=== PATIENT | male | born 1970 | race American Indian/Alaskan Native ===

== ENCOUNTER 2021-09-05 21:40 | Emergency (ER) | payer SELFPAY ==
--- NOTE | 2021-09-05 21:58 | Emergency Department Report ---
<FINN AGUILAR - Last Filed: 09/05/21 22:56> ED Alcohol HPI - General Stated Complaint: ETOH Time Seen by Provider: 09/05/21 21:54 Source: EMS Mode of arrival: Stretcher Limitations: Altered Mental Status - History of Present Illness Initial Comments: Chief complaint: Altered mental status HPI: This 50-year-old male with unknown past history who was found on someone's lawn. Bystander called 911. Strong odor of alcohol reported per EMS. Blood gl ucose 249. Patient mumbling unintelligibly. Does not provide any history. Moving all 4 extremities. MD Complaint: alcohol intoxication Last Drink: unknown Treatments Prior to Arrival: other (EMS transport) - Related Data Home Medications Medication Instructions Recorded Confirmed Last Taken No Known Home Medications [No 09/05/21 09/05/21 Unknown Reported Home Medications] Allergies Allergy/AdvReac Type Severity Reaction Status Date / Time No Known Allergies Allergy Verified 09/05/21 22:48 ED Review of Systems Comment: Unobtainable due to pts medical conditions (Altered mental status) ED Past Medical Hx - Past Medical History Additional medical history: Unable to obtain - Surgical History Additional Surgical History: Unable to obtain - Medications Home Medications: Home Medications Medication Instructions Recorded Confirmed Last Taken Type No Known Home Medications [No 09/05/21 09/05/21 Unknown History Reported Home Medications] ED Physical Exam - General Limitations: Altered Mental Status General appearance: appears intoxicated, lethargic, other (Strong odor of alcohol, mumbling) - Head Head exam: Present: atraumatic, normocephalic - Eye Eye exam: Present: PERRL, scleral icterus, conjunctival injection - ENT ENT exam: Present: mucous membranes moist - Neck Neck exam: Present: normal inspection, full ROM. Absent: meningismus - Respiratory Respiratory exam: Present: normal lung sounds bilaterally. Absent: respiratory distress, wheezes, rales, rhonchi - Cardiovascular Cardiovascular Exam: Present: regular rate, normal rhythm, normal heart sounds. Absent: systolic murmur, diastolic murmur - GI/Abdominal GI/Abdominal exam: Present: soft. Absent: distended, tenderness, guarding, rebound - Extremities Exam Extremities exam: Present: normal inspection - Neurological Exam Neurological exam: Present: altered - Psychiatric Psychiatric exam: Present: flat affect - Skin Skin exam: Present: warm, dry, intact, normal color ED Course - Reevaluation(s) Reevaluation #1: Nurse informed me that patient is much more alert. Patient is awake. He has intelligent conversation. He is answering questions appropriately. He told the nurse that he "turned up for Thanksgiving." ED Medical Decision Making - Lab Data Result diagrams: 09/05/21 22:03 - Medical Decision Making Acute alcohol intoxication: No evidence of head trauma. Moves all extremities x4. Awaiting sobriety. Patient protecting airway. Normal vital signs. Blood alcohol 0.35 ED Disposition Clinical Impression: Acute alcohol intoxication Disposition: 01 HOME / SELF CARE / HOMELESS Is pt being admited?: No Does the pt Need Aspirin: No Condition: Stable Instructions: Binge-Drinking Information, Adult Referrals: NICOLE SALAS MD [Staff Physician] - 3-5 Days <LATESHA VALERIO - Last Filed: 09/06/21 05:51> ED Review of Systems ROS: Stated complaint: ETOH Other details as noted in HPI ED Course Vital Signs 09/05/21 09/05/21 09/05/21 22:07 22:34 22:53 Temperature 97.8 F 97.3 F L Pulse Rate 70 73 Respiratory 18 19 19 Rate Blood Pressure 115/79 127/84 [Right] O2 Sat by Pulse 96 98 98 Oximetry 09/06/21 09/06/21 09/06/21 00:34 01:40 02:00 Temperature 98 F Pulse Rate 67 66 70 Respiratory 14 14 14 Rate Blood Pressure 101/47 102/54 106/49 [Right] O2 Sat by Pulse 96 95 97 Oximetry 09/06/21 05:42 Temperature Pulse Rate 84 Respiratory 15 Rate Blood Pressure 122/70 [Right] O2 Sat by Pulse 99 Oximetry - Reevaluation(s) Reevaluation #2: 09/06/21 05:01 Patient is improved. He is alert ambulatory. Patient to be given some food and discharged home. ED Medical Decision Making - Lab Data Result diagrams: 09/05/21 22:03 Critical care attestation.: If time is entered above; I have spent that time in minutes in the direct care of this critically ill patient, excluding procedure time. ED Disposition Is pt being admited?: No Does the pt Need Aspirin: No
[2021-09-05 22:46] LABS: Alanine Aminotransferase 16 units/L (7-56); Albumin 3.9 g/dL (3.9-5); BUN/Creatinine Ratio 7; Blood Urea Nitrogen 7 mg/dL (9-20); Calcium 8.5 mg/dL (8.4-10.2); Hemolysis Index 69
[2021-09-06 05:43] VITALS: BP 122/70
== END 2021-09-06 05:43 | disposition home or self-care (01) ==
LOC: ED 21:40
DX: F10.129 Alcohol abuse with intoxication, unspecified (principal); Y90.9 Presence of alcohol in blood, level not specified
CPT/HCPCS: 36415; 80053; 80320; 99284; G0480